=== PATIENT | female | born 1960 | race Caucasian/White ===

== ENCOUNTER → 2018-04-03 | Outpatient (CLI) | payer OTHER ==
[~2018-04-03] MED LIST: ATORVASTATIN CA40 MG PO; CARTRIDGE STAM1 EACH SQ; CELEXA20 MG PO; HUMALOG100 UNIT/2 SQ; NOVOLOG100 UNIT/1 SUBQ; REGLAN 10 MG TA10 MG PO; VITAMIN D3400 UNIT PO; ZOFRAN ODT4 MG PO
== END ==
LOC: M.LAB 10:09
PROVIDERS: Family Medicine
DX: E10.9 Type 1 diabetes mellitus without complications (principal); Z79.4 Long term (current) use of insulin

== ENCOUNTER → 2020-07-15 | Outpatient (CLI) | payer OTHER ==
[2020-07-15 09:44] LABS: ALBUMIN 3.8 g/dL (3.4-5.0); ALKALINE PHOSPHATASE 87 U/L (46-116); ANION GAP 7 mmol/L (7-16); BUN 9 mg/dL (7-18); CALCIUM 9.4 mg/dL (8.5-10.1); CHLORIDE 102 mmol/L (98-107); CHOLESTEROL 149 mg/dL (<200); CO2 30 mmol/L (21-32); CREATININE 0.9 mg/dL (0.6-1.3); GLUCOSE 69 mg/dL (70-99); HDL CHOLESTEROL 64 mg/dL (>40); LDL CHOLESTEROL 75 mg/dL (<100); POTASSIUM 3.9 mmol/L (3.5-5.1); SGOT 18 U/L (15-37); SGPT 33 U/L (30-65); SODIUM 139 mmol/L (136-145); TC:HDL 2.3 Ratio (Not establshd); TOTAL BILIRUBIN 0.7 mg/dL (<0.1-1.0); TOTAL PROTEIN 6.8 g/dL (6.4-8.2); TRIGLYCERIDE 50 mg/dL (<150); VLDL 10 mg/dL (<40)
[2020-07-15 09:53] LABS: SERUM ASSESSMENT Clear
[2020-07-16 02:06] LABS: GLYCOHEMOGLOBIN (HGB A1C) 7.5 % (4.8-5.6)
== END ==
LOC: M.LAB 08:57
PROVIDERS: ATTEND Nurse Practitioner Family
DX: E11.65 Type 2 diabetes mellitus with hyperglycemia (principal)

== ENCOUNTER → 2020-12-13 | Outpatient (CLI) | payer OTHER ==
[2020-12-13 11:22] LABS: ABSOLUTE BASOPHILS 0.1 thou/uL (0.0-0.2); ABSOLUTE EOSINOPHILS 0.2 thou/uL (0.0-0.7); ABSOLUTE LYMPHOCYTES 2.4 thou/uL (0.8-5.3); ABSOLUTE MONOCYTES 0.6 thou/uL (0.0-1.2); ABSOLUTE NEUTROPHILS 8.5 thou/uL (1.6-8.1); BASOPHILS 1.2 %; EOSINOPHILS 1.9 %; HEMATOCRIT 44.1 % (37.0-47.0); HEMOGLOBIN 15.2 gm/dL (12.0-15.0); LYMPHOCYTES 20.5 %; MCH 29.8 pg (26.0-34.0); MCHC 34.4 g/dL (28.0-37.0); MCV 86.5 fL (80.0-100.0); MONOCYTES 4.8 %; MPV 7.7 fl. (7.2-11.1); NUCLEATED RBCS 0 /100WBC; PLATELET COUNT* 256 thou/uL (150-400); POLYS 71.6 %; RDW-CV 13.9 % (10.5-14.5); WBC 11.9 thou/uL (4.0-11.0)
[2020-12-13 11:47] LABS: ALBUMIN 4.2 g/dL (3.4-5.0); ALKALINE PHOSPHATASE 87 U/L (46-116); ANION GAP 9 mmol/L (7-16); BUN 14 mg/dL (7-18); CHLORIDE 99 mmol/L (98-107); CHOLESTEROL 152 mg/dL (<200); CO2 27 mmol/L (21-32); CREATININE 0.9 mg/dL (0.6-1.3); GLUCOSE 144 mg/dL (70-99); HDL CHOLESTEROL 76 mg/dL (>40); LDL CHOLESTEROL 66 mg/dL (<100); POTASSIUM 4.3 mmol/L (3.5-5.1); SERUM ASSESSMENT Clear; SGOT 17 U/L (15-37); SGPT 27 U/L (30-65); SODIUM 135 mmol/L (136-145); TOTAL PROTEIN 7.3 g/dL (6.4-8.2); TRIGLYCERIDE 51 mg/dL (<150); VLDL 10 mg/dL (<40)
[2020-12-13 23:06] LABS: GLYCOHEMOGLOBIN (HGB A1C) 7.1 % (4.8-5.6)
== END ==
LOC: M.LAB 11:05
PROVIDERS: ATTEND Family Medicine
DX: E10.9 Type 1 diabetes mellitus without complications (principal); E78.2 Mixed hyperlipidemia; Z79.899 Other long term (current) drug therapy

== ENCOUNTER → 2021-04-12 | Outpatient (CLI) | payer OTHER ==
[2021-04-12 10:13] LABS: ABSOLUTE BASOPHILS 0.1 thou/uL (0.0-0.2); ABSOLUTE EOSINOPHILS 0.2 thou/uL (0.0-0.7); ABSOLUTE MONOCYTES 0.5 thou/uL (0.0-1.2); ABSOLUTE NEUTROPHILS 6.2 thou/uL (1.6-8.1); BASOPHILS 0.8 %; EOSINOPHILS 1.9 %; HEMATOCRIT 44.2 % (37.0-47.0); HEMOGLOBIN 15.2 gm/dL (12.0-15.0); LYMPHOCYTES 22.2 %; MCH 29.8 pg (26.0-34.0); MCHC 34.4 g/dL (28.0-37.0); MCV 86.6 fL (80.0-100.0); MONOCYTES 5.6 %; MPV 7.2 fl. (7.2-11.1); NUCLEATED RBCS 0 /100WBC; PLATELET COUNT* 248 thou/uL (150-400); POLYS 69.5 %; RBC 5.11 mil/uL (4.20-5.00); RDW-CV 13.6 % (10.5-14.5); WBC 8.9 thou/uL (4.0-11.0)
[2021-04-12 10:27] LABS: ALBUMIN 4.4 g/dL (3.4-5.0); ALKALINE PHOSPHATASE 91 U/L (46-116); ANION GAP 8 mmol/L (7-16); BUN 10 mg/dL (7-18); CALCIUM 9.3 mg/dL (8.5-10.1); CHLORIDE 99 mmol/L (98-107); CHOLESTEROL 172 mg/dL (<200); CO2 28 mmol/L (21-32); CREATININE 0.9 mg/dL (0.6-1.3); GLUCOSE 137 mg/dL (70-99); HDL CHOLESTEROL 80 mg/dL (>40); LDL CHOLESTEROL 78 mg/dL (<100); POTASSIUM 4.2 mmol/L (3.5-5.1); SGOT 21 U/L (15-37); SGPT 34 U/L (30-65); SODIUM 135 mmol/L (136-145); TC:HDL 2.2 Ratio (Not establshd); TOTAL BILIRUBIN 0.8 mg/dL (<0.1-1.0); TOTAL PROTEIN 7.8 g/dL (6.4-8.2); TRIGLYCERIDE 72 mg/dL (<150); VLDL 14 mg/dL (<40)
[2021-04-12 10:28] LABS: SERUM ASSESSMENT Clear
== END ==
LOC: M.LAB 09:55
PROVIDERS: ATTEND Family Medicine
DX: E10.9 Type 1 diabetes mellitus without complications (principal); E78.2 Mixed hyperlipidemia; Z79.899 Other long term (current) drug therapy

== ENCOUNTER 2021-05-23 12:29 | Inpatient (IN) | payer OTHER ==
[~2021-05-23] VITALS: Ht 162.6 cm; Wt 77.1 kg
[2021-05-23 13:09] VITALS: BP 99/57
[2021-05-23] MEDS ORDERED: HYDROXAZINE PO (13:16)
[2021-05-23 14:39] LABS: HEMOGLOBIN 16.4 gm/dL (12.0-15.0); MCHC 32.7 g/dL (28.0-37.0); MCV 88.6 fL (80.0-100.0); MPV 7.2 fl. (7.2-11.1); NUCLEATED RBCS 0 /100WBC; PLATELET COUNT* 405 thou/uL (150-400); RBC 5.65 mil/uL (4.20-5.00); RDW-CV 13.5 % (10.5-14.5); WBC 22.8 thou/uL (4.0-11.0)
[2021-05-23 14:54] LABS: URINE BLOOD TRACE (Negative); URINE CLARITY CLEAR; URINE COLOR YELLOW; URINE GLUCOSE-RANDOM 2+ (Negative); URINE LEUKOCYTES-REFLEX TRACE (Negative); URINE NITRITE-REFLEX NEGATIVE (Negative); URINE PROTEIN TRACE (Negative); URINE SPECIFIC GRAVITY 1.025 (1.005-1.030); URINE UROBILINOGEN 0.2 E.U./dl (0.2-1.0)
[2021-05-23 14:54] LABS: CALCIUM 9.8 mg/dL (8.5-10.1); CREATININE 1.7 mg/dL (0.6-1.3)
[2021-05-23 14:58] LABS: ALBUMIN 4.2 g/dL (3.4-5.0); TOTAL BILIRUBIN 0.5 mg/dL (<0.1-1.0); TOTAL PROTEIN 8.6 g/dL (6.4-8.2)
[2021-05-23 14:59] LABS: URINE BILIRUBIN 2+ (Negative); URINE KETONES 3+ (Negative)
[2021-05-23 15:02] LABS: POTASSIUM 6.7 mmol/L (3.5-5.1)
[2021-05-23 15:04] LABS: ICTOTEST (BILI CONFIRMATORY) Negative (Negative)
--- NOTE | 2021-05-23 15:05 | EKG ---
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 : 1960 Requested By: Ursula Ascencio Order Number: [id number] MD: Ankit Cook Measurements Intervals [place] Rate: 138 P: 83 [place]: 111 QRS: 80 QRSD: 87 T: -3 QT: 317 QTc: 481 Interpretive Statements Sinus tachycardia Probable left atrial enlargement Minimal ST depression, anterolateral leads Borderline prolonged QT interval Compared to ECG 10/15/2015 17:27:55 Sinus rhythm no longer present ST (T wave) deviation still present Electronically Signed On 05-23-2021 15:05:46 AIR DEODORIZER SERVICER by Ankit Cook [email or web address] <ELECTRONICALLY SIGNED> By: Ankit Cook MD, [facility] 05/23/21 1505 1315 1315 Ankit Cook MD, [facility] /EPI
[2021-05-23 15:11] LABS: SQUAMOUS >10 Many /LPF (0-3)
[2021-05-23 15:12] LABS: HYALINE CASTS >10 Many /LPF (None Seen)
[2021-05-23 15:13] LABS: CRYSTALS None Seen /LPF (None Seen); MUCUS None Seen strn/LPF (None Seen); URINE RBC 0-2 Rare /HPF (0-2); URINE WBC-REFLEX 6-15 Few /HPF (0-5)
[2021-05-23 15:24] LABS: ABSOLUTE LYMPHOCYTES 0.7 thou/uL (0.8-5.3); ABSOLUTE MONOCYTES 0.5 thou/uL (0.0-1.2); ABSOLUTE NEUTROPHILS 21.7 thou/uL (1.6-8.1); PLATELET ESTIMATE ADEQUATE
[2021-05-23 21:00] VITALS: BP 132/64
[2021-05-23 23:44] LABS: CALCIUM 8.4 mg/dL (8.5-10.1); CREATININE 1.1 mg/dL (0.6-1.3)
[2021-05-23 23:46] LABS: POTASSIUM 4.5 mmol/L (3.5-5.1)
[2021-05-24] VITALS (12 sets, daily range): BP systolic 98–120; BP diastolic 48–70
[2021-05-24 00:28] LABS: BE -10.4 mmol/L (-2 to +3); PCO2 32.7 mmHg (35.0-45.0)
[2021-05-24 00:42] LABS: pH 7.283 (7.340-7.450)
[2021-05-24 03:19] LABS: MCH 28.8 pg (26.0-34.0); MCHC 32.8 g/dL (28.0-37.0); RBC 4.54 mil/uL (4.20-5.00); RDW-CV 13.4 % (10.5-14.5); WBC 19.1 thou/uL (4.0-11.0)
[2021-05-24 03:20] LABS: HEMOGLOBIN 13.1 gm/dL (12.0-15.0)
[2021-05-24 04:14] LABS: CALCIUM 8.8 mg/dL (8.5-10.1); CREATININE 1.3 mg/dL (0.6-1.3); POTASSIUM 5.2 mmol/L (3.5-5.1)
[2021-05-24 09:19] LABS: BE -23.4 mmol/L (-2 to +3); PO2 116.4 mmHg (75.0-100.0)
[2021-05-24 09:23] LABS: pH 7.057 (7.340-7.450)
[2021-05-24 09:24] LABS: PCO2 19.1 mmHg (35.0-45.0)
[2021-05-24 09:48] LABS: ABSOLUTE LYMPHOCYTES 0.8 thou/uL (0.8-5.3); ABSOLUTE MONOCYTES 1.3 thou/uL (0.0-1.2); BASOPHILS 0.1 %; HEMATOCRIT 40.2 % (37.0-47.0); HEMOGLOBIN 12.7 gm/dL (12.0-15.0); LYMPHOCYTES 3.2 %; MCH 28.6 pg (26.0-34.0); MCHC 31.7 g/dL (28.0-37.0); MCV 90.5 fL (80.0-100.0); MONOCYTES 5.5 %; MPV 7.3 fl. (7.2-11.1); NUCLEATED RBCS 0 /100WBC; PLATELET COUNT* 323 thou/uL (150-400); POLYS 91.2 %; RBC 4.45 mil/uL (4.20-5.00); RDW-CV 13.8 % (10.5-14.5); WBC 24.1 thou/uL (4.0-11.0)
[2021-05-24 09:51] LABS: CALCIUM 8.8 mg/dL (8.5-10.1); CREATININE 1.4 mg/dL (0.6-1.3); POTASSIUM 5.4 mmol/L (3.5-5.1)
[2021-05-24 10:12] LABS: ALBUMIN 3.3 g/dL (3.4-5.0); CK-MB MASS 1.2 ng/mL (<0.5-3.6); MAGNESIUM 2.2 mg/dL (1.8-2.4); PHOSPHORUS* 4.2 mg/dL (2.5-4.9); TOTAL BILIRUBIN 0.6 mg/dL (<0.1-1.0); TOTAL PROTEIN 6.5 g/dL (6.4-8.2)
[2021-05-24 10:30] LABS: CALCIUM 8.9 mg/dL (8.5-10.1); CREATININE 1.4 mg/dL (0.6-1.3); POTASSIUM 5.4 mmol/L (3.5-5.1)
[2021-05-24 11:18] LABS: ALBUMIN 3.3 g/dL (3.4-5.0); PHOSPHORUS* 4.3 mg/dL (2.5-4.9)
--- NOTE | 2021-05-24 12:53 | EKG ---
[place] [address] ELECTROCARDIOGRAM REPORT Name: COLT FIELDS Room: [place] [address] ADM IN M.R.#: [id number] Admission: 05/23/21 Attend Phys: Flora Villasenor Discharge: Date of : 64 Date of Service: 05/23/21 2350 Report #: [id number] THIS REPORT FOR: //name// [facility] ED Test Date: 2021-05-23 Test Time: 23:50:13 Pat Name: COLT FIELDS Department: Room: [place] [address] Gender: F Process Control Specialist: AT : 1960 Requested By: Flora Villasenor Order Number: [id number] MD: Jose Leon Measurements Intervals [place] Rate: 112 P: 59 MT: 114 QRS: 57 QRSD: 72 T: 33 QT: 294 QTc: 402 Interpretive Statements Sinus tachycardia Compared to ECG 05/23/2021 13:15:00 ST (T wave) deviation no longer present Electronically Signed On 05-24-2021 12:53:05 ELECTRIC ARC FURNACE OPERATOR by Jose Leon [email or web address] <ELECTRONICALLY SIGNED> By: Jose Leon MD, FACC 05/24/21 1253 2350 2350 Jose Leon MD, FAC /EPI
[2021-05-24 14:08] LABS: CREATININE 1.4 mg/dL (0.6-1.3); POTASSIUM 4.5 mmol/L (3.5-5.1)
[2021-05-24 14:09] LABS: URINE BILIRUBIN NEGATIVE (Negative); URINE BLOOD 1+ (Negative); URINE CLARITY CLEAR; URINE COLOR YELLOW; URINE GLUCOSE-RANDOM 3+ (Negative); URINE LEUKOCYTES-REFLEX NEGATIVE (Negative); URINE NITRITE-REFLEX NEGATIVE (Negative); URINE PROTEIN TRACE (Negative); URINE SPECIFIC GRAVITY >= 1.030 (1.005-1.030); URINE UROBILINOGEN 0.2 E.U./dl (0.2-1.0)
[2021-05-24 14:11] LABS: PHOSPHORUS* 3.3 mg/dL (2.5-4.9)
[2021-05-24 14:34] LABS: BE -21.4 mmol/L (-2 to +3); PO2 97.5 mmHg (75.0-100.0)
[2021-05-24 14:38] LABS: PCO2 17.7 mmHg (35.0-45.0); pH 7.131 (7.340-7.450)
[2021-05-24 14:49] LABS: URINE KETONES 3+ (Negative)
[2021-05-24 14:59] LABS: HYALINE CASTS 0-3 Few /LPF (None Seen); MUCUS None Seen strn/LPF (None Seen); SQUAMOUS 4-10 Moderate /LPF (0-3)
[2021-05-24 15:00] LABS: BACTERIA-REFLEX 1-9 Few /HPF (None Seen); CRYSTALS None Seen /LPF (None Seen); URINE RBC 0-2 Rare /HPF (0-2); URINE WBC-REFLEX 0-5 Rare /HPF (0-5)
[2021-05-24 17:55] LABS: ALBUMIN 2.9 g/dL (3.4-5.0); CREATININE 1.4 mg/dL (0.6-1.3); PHOSPHORUS* 1.9 mg/dL (2.5-4.9); POTASSIUM 4.3 mmol/L (3.5-5.1)
[2021-05-25] VITALS (11 sets, daily range): BP systolic 90–124; BP diastolic 44–59
[2021-05-25 05:23] LABS: CALCIUM 7.9 mg/dL (8.5-10.1); CREATININE 1.1 mg/dL (0.6-1.3); POTASSIUM 3.4 mmol/L (3.5-5.1)
[2021-05-25 08:07] LABS: URINE BLOOD TRACE (Negative); URINE CLARITY CLEAR; URINE COLOR YELLOW; URINE GLUCOSE-RANDOM 3+ (Negative); URINE KETONES 2+ (Negative); URINE LEUKOCYTES-REFLEX NEGATIVE (Negative); URINE NITRITE-REFLEX NEGATIVE (Negative); URINE PROTEIN NEGATIVE (Negative); URINE UROBILINOGEN 0.2 E.U./dl (0.2-1.0)
[2021-05-25 08:09] LABS: ICTOTEST (BILI CONFIRMATORY) Negative (Negative); URINE BILIRUBIN 1+ (Negative)
[2021-05-25 08:16] LABS: SQUAMOUS >10 Many /LPF (0-3)
[2021-05-25 08:17] LABS: URINE RBC 0-2 Rare /HPF (0-2); URINE WBC-REFLEX 6-15 Few /HPF (0-5)
[2021-05-25 08:18] LABS: BACTERIA-REFLEX 1-9 Few /HPF (None Seen); CASTS None Seen /LPF (None Seen); CRYSTALS None Seen /LPF (None Seen)
[2021-05-26] VITALS (12 sets, daily range): BP systolic 91–133; BP diastolic 40–68
[2021-05-26 00:10] LABS: URINE BILIRUBIN NEGATIVE (Negative); URINE BLOOD TRACE (Negative); URINE CLARITY CLEAR; URINE COLOR YELLOW; URINE GLUCOSE-RANDOM 3+ (Negative); URINE LEUKOCYTES NEGATIVE (Negative); URINE NITRITE NEGATIVE (Negative); URINE PROTEIN NEGATIVE (Negative); URINE SPECIFIC GRAVITY 1.015 (1.005-1.030); URINE UROBILINOGEN 0.2 E.U./dl (0.2-1.0)
[2021-05-26 00:11] LABS: URINE KETONES 3+ (Negative)
[2021-05-26 05:56] LABS: ABSOLUTE LYMPHOCYTES 1.9 thou/uL (0.8-5.3); ABSOLUTE MONOCYTES 0.7 thou/uL (0.0-1.2); BASOPHILS 0.1 %; EOSINOPHILS 0.4 %; LYMPHOCYTES 19.8 %; MCH 29.4 pg (26.0-34.0); MCHC 34.9 g/dL (28.0-37.0); MONOCYTES 7.2 %; MPV 7.4 fl. (7.2-11.1); NUCLEATED RBCS 0 /100WBC; POLYS 72.5 %; RBC 3.56 mil/uL (4.20-5.00); RDW-CV 13.6 % (10.5-14.5); WBC 9.7 thou/uL (4.0-11.0)
[2021-05-26 06:11] LABS: HEMOGLOBIN 10.5 gm/dL (12.0-15.0); MCV 84.3 fL (80.0-100.0); PLATELET COUNT* 228 thou/uL (150-400)
[2021-05-26 06:32] LABS: ALBUMIN 2.4 g/dL (3.4-5.0); ALKALINE PHOSPHATASE 62 U/L (46-116); ANION GAP 10 mmol/L (7-16); BUN 4 mg/dL (7-18); CALCIUM 7.6 mg/dL (8.5-10.1); CHLORIDE 106 mmol/L (98-107); CO2 23 mmol/L (21-32); CREATININE 0.9 mg/dL (0.6-1.3); GLUCOSE 142 mg/dL (70-99); PHOSPHORUS* 1.1 mg/dL (2.5-4.9); POTASSIUM 3.3 mmol/L (3.5-5.1); SGOT 14 U/L (15-37); SGPT 22 U/L (30-65); SODIUM 139 mmol/L (136-145); TOTAL BILIRUBIN 0.8 mg/dL (<0.1-1.0); TOTAL PROTEIN 5.2 g/dL (6.4-8.2)
[2021-05-26] MEDS ORDERED: AUGMENTIN 875-1 EACH PO (16:24)
== END 2021-05-26 17:30 | disposition home or self-care (01) | DRG 871 ==
LOC: M.ERS 12:29 → M.TBA-ER 17:04 → M.ICU 05-24 16:57 → M.2W 05-26 09:49
PROVIDERS: Internal Medicine; Nurse Practitioner Family; ADMIT Internal Medicine; ATTEND Internal Medicine
PROC: 05HY33Z Insertion of Infusion Device into Upper Vein, Percutaneous Approach (ICD-10-PCS; principal; 2021-05-24)
DX: A41.9 Sepsis, unspecified organism (principal); E10.10 Type 1 diabetes mellitus with ketoacidosis without coma; N39.0 Urinary tract infection, site not specified; E87.1 Hypo-osmolality and hyponatremia; E10.43 Type 1 diabetes mellitus with diabetic autonomic (poly)neuropathy; E87.6 Hypokalemia; E10.65 Type 1 diabetes mellitus with hyperglycemia; K31.84 Gastroparesis; K04.7 Periapical abscess without sinus; E78.5 Hyperlipidemia, unspecified; F41.9 Anxiety disorder, unspecified; F17.210 Nicotine dependence, cigarettes, uncomplicated; F32.A Depression, unspecified; Z20.822 Contact with and (suspected) exposure to COVID-19; Z88.8 Allergy status to other drugs, medicaments and biological substances; Z79.899 Other long term (current) drug therapy

== ENCOUNTER → 2021-07-29 | Outpatient (CLI) | payer OTHER ==
[~2021-07-29] MED LIST changes: +AUGMENTIN 875-1 EACH PO; +HYDROXAZINE PO
[2021-07-29 09:23] LABS: CALCIUM 8.9 mg/dL (8.5-10.1); CREATININE 0.9 mg/dL (0.6-1.3); POTASSIUM 4.2 mmol/L (3.5-5.1); TOTAL BILIRUBIN 0.6 mg/dL (<0.1-1.0); TOTAL PROTEIN 7.1 g/dL (6.4-8.2)
[2021-07-30 02:06] LABS: GLYCOHEMOGLOBIN (HGB A1C) 6.8 % (4.8-5.6)
== END ==
LOC: M.LAB 08:53
PROVIDERS: ATTEND Nurse Practitioner Family
DX: E11.65 Type 2 diabetes mellitus with hyperglycemia (principal)